=== PATIENT | male | born 1955 | race Caucasian/White ===

== ENCOUNTER 2016-11-05 19:05 | Emergency (ER) | payer MEDICARE, OTHER ==
[2016-11-05 19:30] VITALS: BP 116/95
[2016-11-05] MEDS ORDERED: AMOX TR/POTASSIUM CLAVULANATE 875 MG TABLET PO ONE (20:18)
--- NOTE | 2016-11-05 20:22 | ERNOTE ---
Time Seen by Provider: 11/05/16 20:08 Stated Complaint: CHEST CONGESTION,SOB Presenting Symptoms:: cough Source: patient, family Exam Limitations: no limitations Immunizations: IMMUNIZATION HX Immunizations Up to Date Yes History of Influenza Vaccine Yes Hx Pneumococcal Vaccination No Allergies/Adverse Reactions: Allergies sertraline HCl [From Zoloft] Allergy (Mild, Verified 07/11/15 22:27) HEART RHYTHM PROBLEM aspirin Adverse Reaction (Mild, Verified 07/11/15 22:27) "HURTS HIS STOMACH" esomeprazole magnesium [From Nexium] Adverse Reaction (Mild, Verified 07/11/15 22:27) Diarrhea gabapentin [From Neurontin] Adverse Reaction (Mild, Verified 07/11/15 22:27) "ACTS LIKE HE'S BEEN DRINKING" lisinopril Adverse Reaction (Mild, Verified 07/11/15 22:27) COUGH Home Medications: HOME MEDICATIONS Amiodarone HCl [Cordarone] 200 mg PO DAILY 01/15/15 [Last Taken 06/23/15] Atorvastatin Calcium [Lipitor] 80 mg PO DAILY 01/15/15 [Last Taken 06/23/15] Baclofen 10 mg PO BID 01/15/15 [Last Taken 06/23/15 07:00] Carvedilol [Coreg] 6.25 mg PO BID 01/15/15 [Last Taken 06/23/15 07:00] Esomeprazole Magnesium [Nexium] 40 mg PO DAILY 01/15/15 [Last Taken 06/23/15] Losartan Potassium [Cozaar] 25 mg PO DAILY 01/15/15 [Last Taken 06/23/15] Nitroglycerin [Nitrostat] 0.4 mg SL Q5MIN PRN 01/15/15 [Last Taken Unknown] Pregabalin [Lyrica] 50 mg PO TID 01/15/15 [Last Taken 06/23/15 07:00] Ranitidine HCl [Zantac] 150 mg PO BID 01/15/15 [Last Taken 06/23/15 07:00] Polyethylene Glycol 3350 [Miralax] 17 gm PO DAILY 04/22/15 [Last Taken 06/23/15 07:00] Potassium Chloride [Klor-Con M20] 20 meq PO TID 04/22/15 [Last Taken 06/23/15 07 :00] LORazepam [Ativan] 0.5 mg PO HS 06/23/15 [Last Taken 06/22/15 21:00] Metoclopramide HCl [Reglan] 5 mg PO QID 06/23/15 [Last Taken 06/23/15 07:00] Venlafaxine HCl [Venlafaxine HCl ER] 150 mg PO BID 06/23/15 [Last Taken 07:00] Acetaminophen [Tylenol] 650 mg PO QID PRN #0 tablet 06/26/15 [Last Taken Unknown ] Albuterol Sulfate [Albuterol Sulfate 2.5 MG/0.5ML] 2.5 mg IH QID PRN #0 vial.neb 06/26/15 [Last Taken Unknown] Clopidogrel Bisulfate [Plavix] 75 mg PO DAILY tablet 06/26/15 [Last Taken Unknown] Fluticasone Propionate [Flonase] 1 spray NS BID inhaler 06/26/15 [Last Taken Unknown] Levothyroxine Sodium [Synthroid] 125 mcg PO DAILY #30 tablet 06/26/15 [Last Taken Unknown] levETIRAcetam [Keppra] 500 mg PO Q12H #60 tablet 06/26/15 [Last Taken Unknown] Cyanocobalamin [Vitamin B-12] 1,000 mcg PO DAILY 07/11/15 [Last Taken Unknown] metroNIDAZOLE [Flagyl] 500 mg PO TID 07/11/15 [Last Taken Unknown] Amox Tr/Potassium Clavulanate [Augmentin 875-125 Tablet] 875 mg PO Q12H #20 tab 11/05/16 [Last Taken Unknown] - History of Present Ilness Narrative: States he has had cough, increasing sputum and shortness of breath for 5 days. Wears O2 at night Timing: getting worse Severity: moderate Frequency/Possible Cause: Reports: occasional episodes Modifying Factors - Improves: Reports: oxygen Modifying Factors - Worsens: Reports: activity, coughing Associated Symptoms: Reports: nasal drainage, sore throat Review of Systems - Review of Systems Constitutional: Present: fatigue, malaise EYE: Present: no symptoms reported ENT: Present: nose congestion, nasal drainage, sore throat Respiratory: Present: shortness of breath, cough Cardiology: Present: chest pain - a couple of weeks ago. Absent: edema Gastrointestinal/Abdominal: Present: diarrhea Genitourinary: Present: no symptoms reported Musculoskeletal: Present: joint pain - bilateral ankles and knees Skin: Present: no symptoms reported Neurological: Present: no symptoms reported Endocrine: Present: no symptoms reported Hematologic/Lymphatic: Present: swollen glands - Patient's Past Medical History Patient History - Medical: Migraines Patient History - Cardiac/Respiratory: COPD, CVA/Stroke, Myocardial Infarction, TIA, Home O2 Use Patient History - Cancer: Skin Patient History - Surgical Procedures: Cardiac stent, Pacemaker Patient History - Other: None - Family History Father Family History - Medical: Brother Family History - Medical: Diabetes Type 1 Family History - Cardiac/Respiratory: CVA/Stroke Mother Family History - Medical: Diabetes Type 1 Family History - Cardiac/Respiratory: Hypertension, Myocardial Infarction Sister Family History - Medical: Diabetes Type 2, Other - Social History Living Situations: home Abuse History: No History of abuse Psych History: Hx of Psychiatric Tx Does anyone smoke in the home?: Yes Smoking Status: Current some day smoker Have you smoked in the past 12 months: No Do you dip or chew tobacco: No Patient requests Smoking Cessation Consult: No Initiate information on Smoking Cessation: No Alcohol Use: none Drug Use: none - Immunizations Immunizations Up to Date: Yes Hx Pneumococcal Vaccination: No History of Influenza Vaccine: Yes Physical Exam - Physical Exam General Appearance: Present: wd/wn, alert, mild distress Eye Exam: Normal inspection: bilateral Ears, Nose, Throat: Present: nasal congestion - and mild erythema. Absent: pharyngeal erythema, tonsillar swelling Neck: Present: supple, lymphadenopathy (L) Respiratory: Present: no respiratory distress, expiration (prolonged) - with mild tachypnea, wheezing - occasional Cardiovascular/Chest: Present: regular rate, rhythm, no murmur Gastrointestinal/Abdominal: Present: nontender, nondistended, soft Extremity Exam: Present: normal inspection, non-tender, no edema Neurological Exam: Present: alert, oriented, normal mood/affect, no motor/ sensory deficits Skin Exam: Present: normal color, warm/dry ED Progress - Vital Signs Vital Signs: Vital Signs 11/05/16 19:25 Temperature 37.4 C Pulse Rate 108 H Respiratory 18 Rate Blood Pressure 116/95 O2 Sat by Pulse 100 Oximetry - Progress/Reassessment Chief Complaint: Upper Respiratory Symptoms Departure - Departure Clinical Impression: Acute exacerbation of chronic obstructive pulmonary disease (COPD) Disposition: Home self-care Condition: Good Instructions: Chronic Obstructive Pulmonary Disease Exacerbation, [id number] Referrals: Ky Dotson MD [Primary Care Provider] - Prescriptions: Amox Tr/Potassium Clavulanate [Augmentin 875-125 Tablet] 875 mg PO Q12H #20 tab
[2016-11-05] MEDS ORDERED: AMOX TR/POTASSIUM CLAVULANATE 875 MG TABLET ONE (20:23)
== END 2016-11-05 20:30 | disposition home or self-care (01) ==
LOC: ER 19:05
DX: J44.1 Chronic obstructive pulmonary disease with (acute) exacerbation (principal); F17.210 Nicotine dependence, cigarettes, uncomplicated

== ENCOUNTER 2017-06-19 10:20 | Emergency (ER) | payer MEDICARE, OTHER ==
[2017-06-19] MEDS ORDERED: NORMAL SALINE 1,000 ML IV ONE (10:59)
[2017-06-19] MEDS ORDERED: ONDANSETRON HCL/PF 2 MG/ML VIAL IV ONE (11:03)
--- NOTE | 2017-06-19 11:03 | ERNOTE ---
Medical Problem HPI - General Chief Complaint: Nausea/Vomiting Time Seen by Provider: 06/19/17 10:28 Source: patient Exam Limitations: no limitations - Immun/Allergies/Home Medications Immunizations: IMMUNIZATION HX Immunizations Up to Date Yes History of Influenza Vaccine No Hx Pneumococcal Vaccination No Allergies/Adverse Reactions: Allergies sertraline HCl [From Zoloft] Allergy (Mild, Verified 06/19/17 10:34) HEART RHYTHM PROBLEM aspirin Adverse Reaction (Mild, Verified 06/19/17 10:34) "HURTS HIS STOMACH" esomeprazole magnesium [From Nexium] Adverse Reaction (Mild, Verified 06/19/17 10:34) Diarrhea gabapentin [From Neurontin] Adverse Reaction (Mild, Verified 06/19/17 10:34) "ACTS LIKE HE'S BEEN DRINKING" lisinopril Adverse Reaction (Mild, Verified 06/19/17 10:34) COUGH Home Medications: HOME MEDICATIONS Amiodarone HCl [Cordarone] 200 mg PO DAILY 01/15/15 [Last Taken 06/23/15] Atorvastatin Calcium [Lipitor] 80 mg PO DAILY 01/15/15 [Last Taken 06/23/15] Baclofen 10 mg PO BID 01/15/15 [Last Taken 06/23/15 07:00] Carvedilol [Coreg] 6.25 mg PO BID 01/15/15 [Last Taken 06/23/15 07:00] Esomeprazole Magnesium [Nexium] 40 mg PO DAILY 01/15/15 [Last Taken 06/23/15] Losartan Potassium [Cozaar] 25 mg PO DAILY 01/15/15 [Last Taken 06/23/15] Nitroglycerin [Nitrostat] 0.4 mg SL Q5MIN PRN 01/15/15 [Last Taken Unknown] Pregabalin [Lyrica] 50 mg PO TID 01/15/15 [Last Taken 06/23/15 07:00] Ranitidine HCl [Zantac] 150 mg PO BID 01/15/15 [Last Taken 06/23/15 07:00] Polyethylene Glycol 3350 [Miralax] 17 gm PO DAILY 04/22/15 [Last Taken 06/23/15 07:00] Potassium Chloride [Klor-Con M20] 20 meq PO TID 04/22/15 [Last Taken 06/23/15 07 :00] LORazepam [Ativan] 0.5 mg PO HS 06/23/15 [Last Taken 06/22/15 21:00] Metoclopramide HCl [Reglan] 5 mg PO QID 06/23/15 [Last Taken 06/23/15 07:00] Venlafaxine HCl [Venlafaxine HCl ER] 150 mg PO BID 06/23/15 [Last Taken 07:00] Acetaminophen [Tylenol] 650 mg PO QID PRN #0 tablet 06/26/15 [Last Taken Unknown ] Albuterol Sulfate [Albuterol Sulfate 2.5 MG/0.5ML] 2.5 mg IH QID PRN #0 vial.neb 06/26/15 [Last Taken Unknown] Clopidogrel Bisulfate [Plavix] 75 mg PO DAILY tablet 06/26/15 [Last Taken Unknown] Fluticasone Propionate [Flonase] 1 spray NS BID inhaler 06/26/15 [Last Taken Unknown] Levothyroxine Sodium [Synthroid] 125 mcg PO DAILY #30 tablet 06/26/15 [Last Taken Unknown] levETIRAcetam [Keppra] 500 mg PO Q12H #60 tablet 06/26/15 [Last Taken Unknown] Cyanocobalamin [Vitamin B-12] 1,000 mcg PO DAILY 07/11/15 [Last Taken Unknown] metroNIDAZOLE [Flagyl] 500 mg PO TID 07/11/15 [Last Taken Unknown] Amox Tr/Potassium Clavulanate [Augmentin 875-125 Tablet] 875 mg PO Q12H #20 tab 11/05/16 [Last Taken Unknown] - History of Present History Narrative: Patient presents to the emergency room complaining of a migraine headache in the frontal region of his head bilaterally that he has had for 3-4 days. Additionally patient complains that he has had some diarrhea nausea and vomiting. He denies any chest pain shortness of breath palpitations or diaphoresis in the past 3 days. Review of Systems - Review of Systems Constitutional: Present: weakness, fatigue, malaise EYE: Present: no symptoms reported ENT: Present: no symptoms reported Respiratory: Present: no symptoms reported Cardiology: Present: no symptoms reported Gastrointestinal/Abdominal: Present: nausea, vomiting, diarrhea, abdominal pain Genitourinary: Present: no symptoms reported Musculoskeletal: Present: no symptoms reported Skin: Present: no symptoms reported - Patient's Past Medical History Patient History - Medical: Chronic Pain, Migraines Patient History - Cardiac/Respiratory: COPD, CVA/Stroke, Myocardial Infarction, TIA, Home O2 Use Patient History - Cancer: Skin Patient History - Surgical Procedures: Cancer Surgery, Cardiac stent, Pacemaker Patient History - Other: None - Family History Father Family History - Medical: Brother Family History - Medical: Diabetes Type 1 Family History - Cardiac/Respiratory: CVA/Stroke Mother Family History - Medical: Diabetes Type 1 Family History - Cardiac/Respiratory: Hypertension, Myocardial Infarction Sister Family History - Medical: Diabetes Type 2, Other - Social History Living Situations: home Abuse History: No History of abuse Psych History: Hx of Psychiatric Tx Does anyone smoke in the home?: Yes Smoking Status: Current every day smoker Alcohol Use: none Drug Use: none - Immunizations Immunizations Up to Date: Yes Hx Pneumococcal Vaccination: No History of Influenza Vaccine: No Physical Exam - Physical Exam General Appearance: Present: wd/wn, alert, no apparent distress, other - extremely poor hygiene Eye Exam: Normal inspection: bilateral, PERRL: bilateral, EOMI: bilateral, Other : bilateral - no scleral icterus Neck: Present: normal inspection, nontender Respiratory: Present: no respiratory distress, normal breath sounds, no accessory muscle use, chest nontender, lungs clear Cardiovascular/Chest: Present: regular rate, rhythm, no murmur, normal peripheral pulses - patient does have a pacemaker in the left upper anterior chest area Gastrointestinal/Abdominal: Present: normal bowel sounds, nondistended, soft, no organomegaly - when I palpate the patient's belly it is soft but she does have some diffuse tenderness all over. There is no rebound tenderness upon examination of his abdomen Extremity Exam: Present: normal inspection, normal range of motion Neurological Exam: Present: alert, oriented, normal mood/affect, no motor/ sensory deficits Skin Exam: Present: normal color, warm/dry ED Progress - Results and Orders Patient's Lab Results:: I have reviewed the patient's lab results. - Vital Signs Patient's Vital Signs:: I have reviewed the patient's vital signs. Vital Signs: Vital Signs 06/19/17 06/19/17 10:28 10:38 Temperature 36.8 C Pulse Rate 70 65 Respiratory 17 Rate Blood Pressure 112/57 111/64 O2 Sat by Pulse 99 97 Oximetry - Progress/Reassessment Chief Complaint: Nausea/Vomiting Plan - Plan Plan: This patient has classic symptoms of viral gastroenteritis. After a liter of fluids patient felt significantly better. Departure - Departure Clinical Impression: Viral gastroenteritis Disposition: Home self-care Condition: Good Instructions: Viral Gastroenteritis, Adult, [id number] Additional Instructions: FOLLOW UP WITH YOUR PRIMARY CARE DOCTOR NEEDED
[2017-06-19] MEDS ORDERED: ONDANSETRON HCL/PF 2 MG/ML VIAL ONE (11:05)
[2017-06-19 11:21] LABS: Hematocrit 33.6 % (42.0-52.0); Hemoglobin 10.3 gm/dL (13.5-18.0); Mean Cell Volume 73.4 fl (78-100); Mean Corpuscular Hemoglobin 22.5 pg (27-31); Mean Corpuscular Hgb Conc 30.7 g/dl (32-36); Mean Platelet Volume 9.6 fl (6.0-9.5); Neutrophil # 4.7 K/mm3 (1.3-6.0); Neutrophil % 59.1 % (42-75.0); Platelet Count 349 K/mm3 (150-450); Red Blood Count 4.58 M/mm3 (4.7-6.0); Red Cell Distribution Width 16.9 % (11.5-14.0); White Blood Count 7.9 K/mm3 (4.0-10.5)
[2017-06-19 11:45] LABS: ALT 10 U/L (19-67); AST 14 U/L (0-48); Albumin * 3.6 gm/dl (3.4-5.0); Alkaline Phosphatase * 94 U/L (50-170); Anion Gap 13.9 mmol/L (6.8-13.8); BUN/Creatinine Ratio 10.9 (9.0-21.6); Bilirubin, Total 0.3 mg/dL (0.0-1.1); Blood Urea Nitrogen 13 mg/dL (6-23); CKMB 1.5 ng/mL (0.0-9.0); Ca. Corrected For Albumin 7.2 mg/dL (8.4-10.2); Calcium * 7.2 mg/dL (7.9-10.9); Chloride 102 mmol/L (97-106); Glucose * 112 mg/dL (70-110); Potassium 3.9 mmol/L (3.4-4.6); Sodium 138 mmol/L (132-142)
[2017-06-19 11:47] VITALS: BP 129/78
[2017-06-19 11:51] LABS: Troponin I Less than 0.017 ng/ml (0.00-0.10)
== END 2017-06-19 12:30 | disposition home or self-care (01) ==
LOC: ER 10:20
DX: A08.4 Viral intestinal infection, unspecified (principal); Z85.828 Personal history of other malignant neoplasm of skin; F17.200 Nicotine dependence, unspecified, uncomplicated
CPT/HCPCS: 36415; 80053; 82553; 84484; 85025; 96374; 99284; J2405

== ENCOUNTER 2017-06-24 17:01 | Emergency (ER) | payer MEDICARE, OTHER ==
[2017-06-24] MEDS ORDERED: PROMETHAZINE HCL 50 MG/ML AMPUL IM ONE ×2 (18:20→18:56)
[2017-06-24] MEDS ORDERED: KETOROLAC TROMETHAMINE 60 MG/2 ML VIAL IM ONE ×2 (18:20→18:57)
--- NOTE | 2017-06-24 18:21 | ERNOTE ---
Dizziness ER Record Date of Service: 06/24/17 Presenting Symptoms: dizziness Time Seen by Provider: 06/24/17 18:12 Source: patient, family, RN notes reviewed, old records Exam Limitations: hard of hearing Immunizations: IMMUNIZATION HX Immunizations Up to Date Yes History of Influenza Vaccine No Hx Pneumococcal Vaccination No Allergies/Adverse Reactions: Allergies Allergy/AdvReac Type Severity Reaction Status Date / Time sertraline HCl [From Zoloft] Allergy Mild HEART Verified 06/24/17 17:23 RHYTHM PROBLEM aspirin AdvReac Mild "HURTS HIS Verified 06/24/17 17:23 STOMACH" esomeprazole magnesium AdvReac Mild Diarrhea Verified 06/24/17 17:23 [From Nexium] gabapentin [From Neurontin] AdvReac Mild "ACTS LIKE Verified 06/24/17 17:23 HE'S BEEN DRINKING" lisinopril AdvReac Mild COUGH Verified 06/24/17 17:23 Home Medications: HOME MEDICATIONS Atorvastatin Calcium [Lipitor] 80 mg PO DAILY 01/15/15 [Last Taken 06/23/15] Baclofen 10 mg PO BID 01/15/15 [Last Taken 06/23/15 07:00] Carvedilol [Coreg] 6.25 mg PO BID 01/15/15 [Last Taken 06/23/15 07:00] Esomeprazole Magnesium [Nexium] 40 mg PO DAILY 01/15/15 [Last Taken 06/23/15] Losartan Potassium [Cozaar] 25 mg PO DAILY 01/15/15 [Last Taken 06/23/15] Nitroglycerin [Nitrostat] 0.4 mg SL Q5MIN PRN 01/15/15 [Last Taken Unknown] Ranitidine HCl [Zantac] 150 mg PO BID 01/15/15 [Last Taken 06/23/15 07:00] Polyethylene Glycol 3350 [Miralax] 17 gm PO DAILY 04/22/15 [Last Taken 06/23/15 07:00] Potassium Chloride [Klor-Con M20] 20 meq PO TID 04/22/15 [Last Taken 06/23/15 07 :00] LORazepam [Ativan] 0.5 mg PO HS 06/23/15 [Last Taken 06/22/15 21:00] Metoclopramide HCl [Reglan] 5 mg PO QID 06/23/15 [Last Taken 06/23/15 07:00] Venlafaxine HCl [Venlafaxine HCl ER] 150 mg PO BID 06/23/15 [Last Taken 07:00] Acetaminophen [Tylenol] 650 mg PO QID PRN #0 tablet 06/26/15 [Last Taken Unknown ] Albuterol Sulfate [Albuterol Sulfate 2.5 MG/0.5ML] 2.5 mg IH QID PRN #0 vial.neb 06/26/15 [Last Taken Unknown] Clopidogrel Bisulfate [Plavix] 75 mg PO DAILY tablet 06/26/15 [Last Taken Unknown] Fluticasone Propionate [Flonase] 1 spray NS BID inhaler 06/26/15 [Last Taken Unknown] Levothyroxine Sodium [Synthroid] 125 mcg PO DAILY #30 tablet 06/26/15 [Last Taken Unknown] levETIRAcetam [Keppra] 500 mg PO Q12H #60 tablet 06/26/15 [Last Taken Unknown] Ondansetron [Zofran Odt] 4 mg PO Q6H PRN #20 tab 06/19/17 [Last Taken Unknown] HYDROcodone/ACETAMINOPHEN [Vicodin 5-300 mg Tablet] 1 tab PO Q6H PRN 06/24/17 [ Last Taken Unknown] - History of Present Illness Narrative: 62 year old male brought to the ED for chest pain and shortness of breath. He had some chest pain yesterday, and then again earlier today, but has none currently. He has been feeling lightheaded and generally unwell for the past couple of days. He also reports having a migraine. He was seen 5 days ago with vomiting and diarrhea. This has resolved. Timing and Duration: gradual onset, still present Associated Symptoms: Present: nausea, headache, light headedness. Absent: vomiting, weakness, numbness, sweating, sense of confusion Sense of movement: Present: none Prior Treament: Reports: recently seen, similar symptoms before Review of Systems - Review of Systems Constitutional: Present: recent illness, fatigue, malaise. Absent: fever, chills EYE: Present: no symptoms reported ENT: Present: no symptoms reported Respiratory: Present: shortness of breath, cough. Absent: wheezing Cardiology: Present: chest pain. Absent: syncope, edema Gastrointestinal/Abdominal: Present: nausea. Absent: vomiting, diarrhea, abdominal pain, eating less, drinking less Genitourinary: Absent: dysuria, decreased urinary output Musculoskeletal: Absent: muscle pain, joint pain Skin: Absent: rash, lesions Neurological: Present: headache, dizziness/light-headedness Endocrine: Present: no symptoms reported Hematologic/Lymphatic: Present: no symptoms reported Psych: Present: no symptoms reported - Patient's Past Medical History Patient History - Medical: Chronic Pain, Migraines Patient History - Cardiac/Respiratory: COPD, CVA/Stroke, Myocardial Infarction, TIA, Home O2 Use Patient History - Cancer: Skin Patient History - Surgical Procedures: Cancer Surgery, Cardiac stent, Pacemaker Patient History - Other: None - Family History Father Family History - Medical: Brother Family History - Medical: Diabetes Type 1 Family History - Cardiac/Respiratory: CVA/Stroke Mother Family History - Medical: Diabetes Type 1 Family History - Cardiac/Respiratory: Hypertension, Myocardial Infarction Sister Family History - Medical: Diabetes Type 2, Other - Social History Living Situations: home Abuse History: No History of abuse Psych History: Hx of Psychiatric Tx Does anyone smoke in the home?: Yes Smoking Status: Current every day smoker Have you smoked in the past 12 months: Yes Alcohol Use: none Drug Use: none - Immunizations Immunizations Up to Date: Yes Hx Pneumococcal Vaccination: No History of Influenza Vaccine: No Physical Exam - Physical Exam General Appearance: Present: wd/wn, alert, other - appears to not feel well, poor hygiene Head Exam: Present: normal inspection Ears, Nose, Throat: Present: normal ENT inspection Neck: Present: normal inspection, nontender, supple Respiratory: Present: no respiratory distress, no accessory muscle use, expiration (prolonged), crackles - bibasilar Cardiovascular/Chest: Present: regular rate, rhythm, no murmur, normal peripheral pulses Gastrointestinal/Abdominal: Present: normal bowel sounds, nontender, nondistended, soft Extremity Exam: Present: normal inspection, normal range of motion, no edema Neurological Exam: Present: alert, oriented, normal mood/affect, no motor/ sensory deficits Skin Exam: Present: normal color, warm/dry ED Progress - Results and Orders Patient's Lab Results:: I have reviewed the patient's lab results. - Vital Signs Patient's Vital Signs:: I have reviewed the patient's vital signs. Vital Signs: Vital Signs 06/24/17 17:10 Temperature 36.7 C Pulse Rate 64 Respiratory 16 Rate Blood Pressure 122/61 O2 Sat by Pulse 98 Oximetry - EKG EKG: NSR EKG read: Reviewed by me - X-Ray X-Ray #1 X-Ray: chest Interpretation: Interp. by me X-ray Comments: No acute cardiopulmonary process noted - Progress/Reassessment Chief Complaint: Dizziness Progress:: Improved Progress Note-Subjective: 06/24/17 19:22 Discussed test results with patient and admission to [facility] given his elevated troponin. The patient refuses to stay overnight because he has animals at home to take care of. Patient has had no chest pain while in the department. Toradol and Phenergan given for "migraine." Cautioned regarding drowsiness that may occur. Departure Clinical Impression: Chest pain of uncertain etiology Headache Qualifiers: Headache type: unspecified Headache chronicity pattern: acute headache Intractability: not intractable Qualified Code(s): R51 - Headache - Departure Disposition: Against medical advice Condition: Stable Additional Instructions: Return to ER if symptoms worsen
[2017-06-24 18:31] LABS: Hematocrit 34.3 % (42.0-52.0); Hemoglobin 10.2 gm/dL (13.5-18.0); Mean Cell Volume 73.9 fl (78-100); Mean Corpuscular Hgb Conc 29.7 g/dl (32-36); Neutrophil # 4.8 K/mm3 (1.3-6.0); Platelet Count 360 K/mm3 (150-450); Red Blood Count 4.64 M/mm3 (4.7-6.0); White Blood Count 7.5 K/mm3 (4.0-10.5)
[2017-06-24 18:50] LABS: Troponin I 0.238 ng/ml (0.00-0.10)
[2017-06-24 18:51] LABS: Albumin * 3.6 gm/dl (3.4-5.0); BUN/Creatinine Ratio 9.3 (9.0-21.6); Bilirubin, Total 0.3 mg/dL (0.0-1.1); Ca. Corrected For Albumin 7.8 mg/dL (8.4-10.2); Calcium * 7.8 mg/dL (7.9-10.9); Carbon Dioxide 30.9 mmol/L (24-32.6); Potassium 3.9 mmol/L (3.4-4.6)
[2017-06-24 19:32] VITALS: BP 125/76
== END 2017-06-24 19:29 | disposition left against medical advice (07) ==
LOC: ER 17:01
DX: R07.9 Chest pain, unspecified (principal); R51 Headache; Z53.29 Procedure and treatment not carried out because of patient's decision for other reasons; G89.29 Other chronic pain; J44.9 Chronic obstructive pulmonary disease, unspecified; Z86.73 Personal history of transient ischemic attack (TIA), and cerebral infarction without residual deficits; I25.2 Old myocardial infarction; Z85.828 Personal history of other malignant neoplasm of skin; F17.200 Nicotine dependence, unspecified, uncomplicated

== ENCOUNTER 2017-08-27 16:32 | Emergency (ER) | payer MEDICARE, OTHER ==
[2017-08-27] MEDS ORDERED: ALBUTEROL SULFATE/IPRATROPIUM 3 ML NEBU IH ONE ×2 (17:52→18:25)
--- NOTE | 2017-08-27 17:59 | ERNOTE ---
Date of Service: 08/27/17 Time Seen by Provider: 08/27/17 17:36 Stated Complaint: TROUBLE BREATHING. COUGH. Presenting Symptoms:: cough, sore throat, runny nose, fever Source: patient Exam Limitations: no limitations Immunizations: IMMUNIZATION HX Immunizations Up to Date Yes History of Influenza Vaccine No Hx Pneumococcal Vaccination No Allergies/Adverse Reactions: Allergies sertraline HCl [From Zoloft] Allergy (Mild, Verified 08/27/17 16:48) HEART RHYTHM PROBLEM aspirin Adverse Reaction (Mild, Verified 08/27/17 16:48) "HURTS HIS STOMACH" esomeprazole magnesium [From Nexium] Adverse Reaction (Mild, Verified 08/27/17 16:48) Diarrhea gabapentin [From Neurontin] Adverse Reaction (Mild, Verified 08/27/17 16:48) "ACTS LIKE HE'S BEEN DRINKING" lisinopril Adverse Reaction (Mild, Verified 08/27/17 16:48) COUGH Home Medications: HOME MEDICATIONS Atorvastatin Calcium [Lipitor] 80 mg PO DAILY 01/15/15 [Last Taken 06/23/15] Baclofen 10 mg PO BID 01/15/15 [Last Taken 06/23/15 07:00] Carvedilol [Coreg] 6.25 mg PO BID 01/15/15 [Last Taken 06/23/15 07:00] Losartan Potassium [Cozaar] 25 mg PO DAILY 01/15/15 [Last Taken 06/23/15] Nitroglycerin [Nitrostat] 0.4 mg SL Q5MIN PRN 01/15/15 [Last Taken Unknown] Polyethylene Glycol 3350 [Miralax] 17 gm PO DAILY PRN 04/22/15 [Last Taken 06/23 07:00] Potassium Chloride [Klor-Con M20] 20 meq PO TID 04/22/15 [Last Taken 06/23/15 07 :00] LORazepam [Ativan] 0.5 mg PO HS PRN 06/23/15 [Last Taken 06/22/15 21:00] Metoclopramide HCl [Reglan] 5 mg PO QID 06/23/15 [Last Taken 06/23/15 07:00] Venlafaxine HCl [Venlafaxine HCl ER] 150 mg PO BID 06/23/15 [Last Taken 07:00] Acetaminophen [Tylenol] 650 mg PO QID PRN #0 tablet 06/26/15 [Last Taken Unknown ] Albuterol Sulfate [Albuterol Sulfate 2.5 MG/0.5ML] 2.5 mg IH QID PRN #0 vial.neb 06/26/15 [Last Taken Unknown] Clopidogrel Bisulfate [Plavix] 75 mg PO DAILY tablet 06/26/15 [Last Taken Unknown] Fluticasone Propionate [Flonase] 1 spray NS BID inhaler 06/26/15 [Last Taken Unknown] Levothyroxine Sodium [Synthroid] 125 mcg PO DAILY #30 tablet 06/26/15 [Last Taken Unknown] levETIRAcetam [Keppra] 500 mg PO Q12H #60 tablet 06/26/15 [Last Taken Unknown] Ondansetron [Zofran Odt] 4 mg PO Q6H PRN #20 tab 06/19/17 [Last Taken Unknown] HYDROcodone/ACETAMINOPHEN [Vicodin 5-300 mg Tablet] 1 tab PO Q6H PRN 06/24/17 [ Last Taken Unknown] Albuterol Sulfate [Ventolin Hfa] 2 puff IH Q4H PRN #1 inhaler 08/27/17 [Last Taken Unknown] Doxycycline Monohydrate 100 mg PO BID #20 tablet 08/27/17 [Last Taken Unknown] Furosemide [Lasix] 20 mg PO DAILY #10 tablet 08/27/17 [Last Taken Unknown] Warfarin Sodium [Coumadin] 2 mg PO ONCE 08/27/17 [Last Taken Unknown] Warfarin Sodium [Coumadin] 4 mg PO ONCE 08/27/17 [Last Taken Unknown] predniSONE [Prednisone] 3 tab PO DAILY #9 tab 08/27/17 [Last Taken Unknown] - History of Present Ilness Narrative: Pt. comes in with c/o cough, SOB, fever, rhinorrhea, and fatigue for a week. Pt. denies any abd pain, CP, NVD, but states that he has had a recent ear infection a month ago and was on abx for that. Pt. has a hx of COPD but is not on any medications for this at this time. Pt. also has a pacemaker. Timing: getting worse Severity: moderate Frequency/Possible Cause: Reports: frequent episodes, smoke exposure Modifying Factors - Improves: Reports: nothing Modifying Factors - Worsens: Reports: coughing, deep breath, lying down Associated Symptoms: Reports: cough, shortness of breath, wheezing, nasal congestion, nasal drainage, sore throat Review of Systems - Review of Systems Constitutional: Present: fever, chills, fatigue, malaise. Absent: recent illness EYE: Present: no symptoms reported ENT: Present: nose congestion, nasal drainage, sore throat. Absent: ear pain Respiratory: Present: shortness of breath, cough, wheezing Cardiology: Present: no symptoms reported. Absent: chest pain, palpitations, edema Gastrointestinal/Abdominal: Present: no symptoms reported. Absent: nausea, vomiting, diarrhea Genitourinary: Present: no symptoms reported. Absent: frequency, decreased urinary output Musculoskeletal: Present: no symptoms reported. Absent: back pain, joint pain Skin: Present: no symptoms reported Neurological: Present: no symptoms reported. Absent: headache, dizziness/light- headedness, weakness, numbness All Other Systems: All systems neg except as marked - Patient's Past Medical History Patient History - Medical: Chronic Pain, Migraines Patient History - Cardiac/Respiratory: Bronchitis, COPD, CVA/Stroke, Myocardial Infarction, Pneumonia, TIA, Home O2 Use Patient History - Cancer: Skin Patient History - Surgical Procedures: Cancer Surgery, Cardiac stent, Pacemaker Patient History - Other: None - Family History Father Family History - Medical: Brother Family History - Medical: Diabetes Type 1 Family History - Cardiac/Respiratory: CVA/Stroke Mother Family History - Medical: Diabetes Type 1 Family History - Cardiac/Respiratory: Hypertension, Myocardial Infarction Sister Family History - Medical: Diabetes Type 2, Other - Social History Abuse History: No History of abuse Psych History: Hx of Psychiatric Tx Smoking Status: Current every day smoker Have you smoked in the past 12 months: Yes - Immunizations Immunizations Up to Date: Yes Hx Pneumococcal Vaccination: No History of Influenza Vaccine: No Physical Exam - Physical Exam General Appearance: Present: wd/wn, alert, no apparent distress Head Exam: Present: normal inspection, no evidence of injury Eye Exam: Normal inspection: bilateral, PERRL: bilateral, EOMI: bilateral Ears, Nose, Throat: Present: abnormal TM (R), abnormal TM (L), cerumen impaction - B, nasal congestion, sinus pain/drainage - PND, normal pharynx. Absent: tonsillar exudate, tonsillar swelling, dry mucous membranes Neck: Present: normal inspection, nontender, supple, full range of motion. Absent: lymphadenopathy (R), lymphadenopathy (L) Respiratory: Present: no respiratory distress, chest nontender, lungs clear, decreased breath sounds - bases, wheezing - exp upper Cardiovascular/Chest: Present: regular rate, rhythm, no murmur, normal peripheral pulses Gastrointestinal/Abdominal: Present: normal bowel sounds, nontender, nondistended, soft, no organomegaly Back Exam: Present: normal inspection Extremity Exam: Present: normal inspection Neurological Exam: Present: alert, oriented, normal mood/affect, no motor/ sensory deficits Skin Exam: Present: warm/dry, pallor ED Progress - Date and Time Seen: Date and Time: 08/27/17 19:08 Pt. is not hypoxic and is tolerating activity well, so I feel pt. is safe to go home but will increase pt. lasix by 20mg a day and put pt. on steroid burst with ABX and albuterol and have pt. follow up with primary provider on Wednesday. - Results and Orders Patient's Lab Results:: I have reviewed the patient's lab results. - Vital Signs Patient's Vital Signs:: I have reviewed the patient's vital signs. Vital Signs: Vital Signs 08/27/17 16:43 Temperature 37.4 C Pulse Rate 68 Respiratory 22 H Rate Blood Pressure 103/68 O2 Sat by Pulse 98 Oximetry - EKG EKG: nonspecific ST T wave changes, other - SR with incomplete LBBB EKG read: Reviewed by me EKG Comments: interp by Dr Fraga - X-Ray X-Ray #1 X-Ray: chest Interpretation: Interp. by me X-ray Comments: increased bronchial cuffing no specific consolidation but with increase pulmonary central congestion on xray as well - Progress/Reassessment Chief Complaint: Cough Departure Clinical Impression: CHF (congestive heart failure) Qualifiers: Congestive heart failure type: combined Congestive heart failure chronicity: acute on chronic Qualified Code(s): I50.43 - Acute on chronic combined systolic (congestive) and diastolic (congestive) heart failure COPD (chronic obstructive pulmonary disease) Qualifiers: COPD type: unspecified COPD Qualified Code(s): J44.9 - Chronic obstructive pulmonary disease, unspecified - Departure Disposition: Home self-care Condition: Fair Instructions: Chronic Obstructive Pulmonary Disease, [id number], Heart Failure, [id number] Additional Instructions: Please take 80 mg of furosemide in the morning and 20 in the afternoon. Also take albuterol every 4 hours as needed for shortness of breath. Also take steroids 3 pills a day for three days. Finish all antibiotics and follow up with primary care provider on Wednesday. Prescriptions: Albuterol Sulfate [Ventolin Hfa] 2 puff IH Q4H PRN #1 inhaler PRN Reason: Shortness Of Breath Doxycycline Monohydrate 100 mg PO BID #20 tablet Furosemide [Lasix] 20 mg PO DAILY #10 tablet predniSONE [Prednisone] 3 tab PO DAILY #9 tab
[2017-08-27 18:13] LABS: Hematocrit 32.7 % (42.0-52.0); Hemoglobin 9.9 gm/dL (13.5-18.0); Mean Cell Volume 71.4 fl (78-100); Mean Corpuscular Hemoglobin 21.6 pg (27-31); Mean Corpuscular Hgb Conc 30.3 g/dl (32-36); Mean Platelet Volume 9.9 fl (6.0-9.5); Neutrophil # 4.3 K/mm3 (1.3-6.0); Neutrophil % 62.1 % (42-75.0); Platelet Count 315 K/mm3 (150-450); Red Blood Count 4.58 M/mm3 (4.7-6.0); Red Cell Distribution Width 18.7 % (11.5-14.0); White Blood Count 6.9 K/mm3 (4.0-10.5)
[2017-08-27 18:46] LABS: Albumin * 3.6 gm/dl (3.4-5.0); Anion Gap 13.3 mmol/L (6.8-13.8); BUN/Creatinine Ratio 9.2 (9.0-21.6); Bilirubin, Total 0.4 mg/dL (0.0-1.1); Ca. Corrected For Albumin 7.6 mg/dL (8.4-10.2); Calcium * 7.6 mg/dL (7.9-10.9); Carbon Dioxide 27.2 mmol/L (24-32.6); Potassium 3.5 mmol/L (3.4-4.6); Total Protein 7.7 gm/dL (6.2-8.2)
[2017-08-27] MEDS ORDERED: FUROSEMIDE 40 MG TABLET PO ONE (19:06)
[2017-08-27] MEDS ORDERED: METHYLPREDNISOLONE ACETATE 80 MG/ML VIAL IM ONE (19:07)
[2017-08-27] MEDS ORDERED: DOXYCYCLINE HYCLATE 100 MG TABLET PO ONE (19:07)
[2017-08-27] MEDS ORDERED: FUROSEMIDE 40 MG TABLET ONE (19:25)
[2017-08-27] MEDS ORDERED: METHYLPREDNISOLONE ACETATE 80 MG/ML VIAL ONE (19:26)
[2017-08-27] MEDS ORDERED: DOXYCYCLINE HYCLATE 100 MG TABLET ONE (19:26)
[2017-08-27 19:32] VITALS: BP 144/76
== END 2017-08-27 19:38 | disposition home or self-care (01) ==
LOC: ER 16:32
DX: I50.43 Acute on chronic combined systolic (congestive) and diastolic (congestive) heart failure (principal); J44.9 Chronic obstructive pulmonary disease, unspecified; G89.29 Other chronic pain; I25.2 Old myocardial infarction; Z85.828 Personal history of other malignant neoplasm of skin; F17.200 Nicotine dependence, unspecified, uncomplicated

== ENCOUNTER 2017-10-26 08:32 | Emergency (ER) | payer MEDICARE, OTHER ==
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
[2017-10-26 12:56] VITALS: BP 127/67
== END 2017-10-26 09:50 | disposition home or self-care (01) ==
LOC: ER 08:32
DX: Z04.1 Encounter for examination and observation following transport accident (principal); E16.2 Hypoglycemia, unspecified; F17.200 Nicotine dependence, unspecified, uncomplicated; I25.2 Old myocardial infarction; Z86.73 Personal history of transient ischemic attack (TIA), and cerebral infarction without residual deficits; Z99.81 Dependence on supplemental oxygen; Z85.828 Personal history of other malignant neoplasm of skin